=== PATIENT | female | born 1950 | race Caucasian/White ===

== ENCOUNTER 2016-12-01 09:58 | Day surgery (SDC) | payer OTHER ==
[~2016-12-01] VITALS: Ht 152.4 cm; Wt 58.6 kg
[2016-12-01 10:54] VITALS: Ht 152.4 cm; Wt 58.6 kg
[2016-12-01] MEDS ORDERED: OMEGA 3 (11:07)
[2016-12-01] MEDS ORDERED: LANS30CA PO (11:07)
[2016-12-01] MEDS ORDERED: CALC-143 PO (11:08)
[2016-12-01 11:28] VITALS: BP 129/85; PULSE 94; RESP 20
[2016-12-01] MEDS ORDERED: MIDAZOLAM 1 MG/ML 2 ML INJ ONE ×2 (12:08→12:09)
[2016-12-01] MEDS ORDERED: FENTAnyl 50 MCG/ML VIAL ONE (12:09)
[2016-12-01 12:30] VITALS: BP 104/64; PULSE 70; RESP 14
--- NOTE | 2016-12-02 06:54 | GILP ---
DATE OF PROCEDURE: 12/01/2016 NAME OF PROCEDURES: Colonoscopy and biopsy. SURGEON: Abby Allen MD PREOPERATIVE DIAGNOSES: Rectal bleeding and change in bowel habit. POSTOPERATIVE DIAGNOSES: 1. Colonoscopy all the way to the cecum. 2. Small sigmoid polyp was removed using the biopsy forceps. 3. Internal hemorrhoids. INDICATION FOR THE PROCEDURE: Ms. Judy Valencia is a 66-year-old female patient who noticed a noguera ge in the bowel habit, and she was complaining of rectal bleeding. The patient was scheduled for co lonoscopy for further evaluation. The procedure and possible complications were well explained to the patient. The patient understood and consented to the procedure. DESCRIPTION OF PROCEDURE: Under the influence of fentanyl and Versed, the colonoscope was carefully introduced in the rectum, and under direct vision, it was advanced all the way to the cecum. FINDINGS: The patient had a small sigmoid colon polyp, and it was removed using the biopsy forceps. She was noted to have internal hemorrhoids. She tolerated the procedure very well, and there was no complication from the procedure. At the end of the procedure, she was awake with stable vital signs, and she was discharged home to the care of her family. IMPRESSION: 1. Colonoscopy all the way to the cecum. 2. Small sigmoid colon polyp was removed using the biopsy forceps. 3. Internal hemorrhoids. PLAN: 1. Continue Linzess for constipation. 2. Lidocaine ointment p.r.n. for rectal pain. 3. Next screening colonoscopy in 10 years. Dictated By: ABBY QUEZADA/MARGUERITE Conf#: [id number] DID#: [id number]
--- NOTE | 2016-12-02 10:12 | CONS ---
DATE OF ADMISSION: 12/01/2016 DATE OF CONSULTATION: TYPE OF CONSULTATION: Preoperative gastroenterology. Dear Dr. Graves: I thank you very much for this kind referral. HISTORY OF PRESENT ILLNESS: Ms. Judy Valencia is a 66-year-old female patient who has been referre d to me for further evaluation of rectal pain and bleeding. The patient has also noticed a change i n the bowel habit with constipation. There is no past history of colon neoplasm. The patient never had screening colonoscopy. Rectal examination was done by the primary MD and no abnormality was de tected. The patient has history of gastritis and gastroesophageal reflux disease and she has been t aking lansoprazole. There is no history of gallstones. She does not have any fever, chills, or jau ndice. There is no history of liver disease. She is not a hypertensive or diabetic. She does not have any heart disease or lung problem. There is no history of kidney disease. She is status post tubal ligation. SOCIAL HISTORY: She is a nonsmoker. She does not abuse alcohol. FAMILY HISTORY: Negative for gastrointestinal tract neoplasm. ALLERGIES: THERE IS NO HISTORY OF SIGNIFICANT DRUG ALLERGY. MEDICATIONS: 1. Lansoprazole. 2. [place] 3. PHYSICAL EXAMINATION: GENERAL: She is 5 feet tall and she weighs 137 pounds. HEART: Examination of the heart reveals normal first and second heart sounds. LUNGS: Clear. ABDOMEN: Soft without any distention. Liver and spleen are not palpable. There are no masses. Th ere is no focal tenderness. Normal bowel sounds are heard. RECTAL: Examination deferred per the patient's request because it has already been done by the mag hanna MD. CENTRAL NERVOUS SYSTEM: Does not reveal any focal neurological deficit. IMPRESSION: 1. Change in the bowel habit with constipation. 2. Rectal pain. 3. Rectal bleeding. 4. Gastritis and gastroesophageal reflux disease. 5. The patient is on lansoprazole. 6. Status post tubal ligation. PLAN 1. Continue lansoprazole. 2. Linzess 145 mcg p.o. daily a.m. before breakfast. 3. Lidocaine 5% ointment b.i.d. for rectal pain. 4. Colonoscopy for further evaluation. The procedures and possible complications are well explained to the patient. She understands and co nsents to the procedure. I thank you once again. With warmest personal regards, Dictated By: ABBY QUEZADA/MARGUERITE Conf#: [id number] DID#: [id number] CC: ABBY MANCUSO MD;*EndCC*
== END 2016-12-01 13:22 | disposition home or self-care (01) ==
LOC: GIL 09:58
PROVIDERS: ATTEND Internal Medicine Gastroenterology
DX: K62.89 Other specified diseases of anus and rectum (principal); K62.5 Hemorrhage of anus and rectum; K29.70 Gastritis, unspecified, without bleeding; K21.9 Gastro-esophageal reflux disease without esophagitis; Z98.51 Tubal ligation status; K59.00 Constipation, unspecified; K64.8 Other hemorrhoids; D12.5 Benign neoplasm of sigmoid colon
CPT/HCPCS: 45380; 88305; J2250; J3010; Z7610